=== PATIENT | female | born 1965 | race Caucasian/White ===

== ENCOUNTER 2021-10-04 05:20 | Emergency (ER) | payer OTHER ==
[~2021-10-04] VITALS: Ht 157.5 cm; Wt 63.5 kg
--- NOTE | 2021-10-04 05:20 | NUR ---
PT IN [facility]
[2021-10-04 05:22] VITALS: BP 154/90
[2021-10-04] MEDS ORDERED: IBUPROFEN 600 MG TAB PO ONE (05:35)
[2021-10-04 05:50] VITALS: BP 154/90
--- NOTE | 2021-10-04 05:50 | NUR ---
Patient discharged with v/s stable. Written and verbal after care instructions given and explained. Patient verbalized understanding. Police with in custody. All questions addressed prior to discharge. Advised to follow up with [facility]D.
== END 2021-10-04 05:50 ==
LOC: MED 05:20
DX: F10.10 Alcohol abuse, uncomplicated (principal); Y90.9 Presence of alcohol in blood, level not specified; R51.9 Headache, unspecified; I10 Essential (primary) hypertension; K51.90 Ulcerative colitis, unspecified, without complications; Z88.5 Allergy status to narcotic agent
CPT/HCPCS: 99283

== ENCOUNTER 2023-01-12 14:22 | Emergency (ER) | payer MEDICAID, OTHER ==
[~2023-01-12] VITALS: Ht 162.6 cm; Wt 63.5 kg
[2023-01-12 14:38] VITALS: BP 152/105; PULSE 81; RESP 18; TEMP 97.8; O2SAT 98
[2023-01-12] MEDS ORDERED: KETOROLAC 30 MG/ML VIAL IM ONE (15:05)
[2023-01-12 15:23] LABS: APPEARANCE,URINE CLEAR (CLEAR); BILIRUBIN,URINE NEGATIVE (NEGATIVE); BLOOD, URINE NEGATIVE (NEGATIVE); COLOR,URINE YELLOW (YELLOW); LEUKOCYTE ESTERASE ,URINE 2+ (NEGATIVE); NITRITE, URINE NEGATIVE (NEGATIVE); PROTEIN,URINE NEGATIVE (NEGATIVE); UGLUCOSE NEGATIVE (NEGATIVE); UROBILINOGEN,URINE 0.2 EU/dL (0.2 - 1)
[2023-01-12 15:41] LABS: RBC,URINE 0-5 /HPF (0-5)
[2023-01-12 15:49] LABS: BACTERIA,URINE FEW /HPF (None Seen); SQUAMOUS EPITHELIAL CELL,UR 0-3 (FEW) /LPF (0-3 (FEW))
[2023-01-12] MEDS ORDERED: AMOX1TAB8 PO (15:58)
[2023-01-12] MEDS ORDERED: METR-435 PO (15:58)
[2023-01-12] MEDS ORDERED: FLUC150T PO (15:58)
[2023-01-12 16:11] VITALS: BP 135/75; PULSE 78; RESP 18; TEMP 98.4; O2SAT 98
[2023-01-13] MEDS ORDERED: FLUC150T PO (15:20)
[2023-01-13] MEDS ORDERED: AMOX1TAB8 PO (15:20)
[2023-01-13] MEDS ORDERED: METR-435 PO (15:20)
== END 2023-01-12 16:10 | disposition home or self-care (01) ==
LOC: MED 14:22
DX: A59.00 Urogenital trichomoniasis, unspecified (principal); N39.0 Urinary tract infection, site not specified; J32.9 Chronic sinusitis, unspecified; Z79.899 Other long term (current) drug therapy
CPT/HCPCS: 81001; 81025; 87086; 87210; 96372; 99284; J1885